=== PATIENT | female | born 1955 | race Caucasian/White ===

== ENCOUNTER → 2024-09-04 | Outpatient (CLI) | payer OTHER | LOC: LAB SHORT 17:01 → LAB 17:01 | DX: N39.0 Urinary tract infection, site not specified (principal) | CPT/HCPCS: 87077; 87086; 87186 ==

== ENCOUNTER 2025-02-02 06:16 | Day surgery (SDC) | payer OTHER ==
[2025-02-02] VITALS (12 sets, daily range): BP systolic 111–142; BP diastolic 64–90
[~2025-02-02] VITALS: Ht 137.2 cm; Wt 67.0 kg
[~2025-02-02 06:16] MED LIST: ALBU90OI INH; ALPR.5 PO; CYCL10 PO; Deltasone 10 mg10 MG; Estrace Vagin42.5 GM VAG; Flonase 0.05% N16 GM; GABA300 PO; HYDPAM25 PO; LEVSOD25 PO; MONT10T PO; Norco 5-325 Ta1 EACH PO; PRED FORTE5 ML; PREMARIN VAG; STIOLTO RESPIMAT4 G1 INH; TRELEGY ELLIPT1 EACH INH; Triamcinolone A15 G4 TOP
[2025-02-02] MEDS ORDERED: Lactated Ringer's 1,000 ML IV SCH (06:25)
[2025-02-02] MEDS ORDERED: CeFAZolin Sodium 2,000 MG in NS 100 ML IV SCH (06:25)
[2025-02-02] MEDS ORDERED: VITAMIN B12500 MCG PO (06:43)
[2025-02-02] MEDS ORDERED: Bupivacaine 0.5% HCl 5 MG/ML 30MLVIAL ONE (07:02)
[2025-02-02] MEDS ORDERED: CeFAZolin Sodium 2,000 MG VIAL ONE (07:04)
[2025-02-02] MEDS ORDERED: propofoL 20 ML IV ONE (07:04)
[2025-02-02] MEDS ORDERED: FentaNYL Citrate 50 MCG/ML 2 ML Injection ONE ×3 (07:19→09:35)
[2025-02-02] MEDS ORDERED: Rocuronium Bromide 10 MG/ML 5ML Injection IV ONE (07:21)
[2025-02-02] MEDS ORDERED: Midazolam HCl 1MG / ML 2ML Vial ONE (07:22)
--- NOTE | 2025-02-02 07:45 | NUR ---
Ambulatory in Day Surgery WITH STEADY GAIT. History, Chart, Medications and Allergies reviewed before start of procedure. Pre-Op teaching done. Pt verbalizes understanding. Patient States Post-Procedure ride home has been arranged WITH FRIEND CAT. TOP AND BOTTOM DENTURES AND GLASSES REMOVED AND PLACED IN PACU WITH PT LABEL ON THEM. PHONE AND BLADDER STIMULATOR CONTROLLER PLACED IN BLACK BAG UNDER PT'S GURN. BLADDER STIMULATOR IN R HIP TURNED OFF PRIOR TO GOING TO OR. CAT PHONED PER PT REQUEST AND INFORMED OF PRESCRIPTION BEING SENT ELECTRONICALLY TO HER PHARMACY IN [place].
[2025-02-02] MEDS ORDERED: Ondansetron HCl 2 MG / ML 2ML Vial ONE (08:18)
[2025-02-02] MEDS ORDERED: FentaNYL Citrate 50 MCG/ML 2 ML Injection IV PRN ×2 (08:35)
[2025-02-02] MEDS ORDERED: Morphine Sulfate 4 MG/1 ML Injection IV PRN (08:35)
[2025-02-02] MEDS ORDERED: Ondansetron HCl 2 MG / ML 2ML Vial IV PRN (08:35)
[2025-02-02] MEDS ORDERED: HydrALAZINE HCl 20 MG / ML 1ML Vial IV PRN (08:35)
[2025-02-02] MEDS ORDERED: HYDROmorphone HCl/Pf 1MG SYR IV PRN (08:35)
[2025-02-02] MEDS ORDERED: Metoclopramide HCl 5MG / ML 2ML Vial IV PRN (08:35)
[2025-02-02] MEDS ORDERED: Sugammadex Sodium 200 MG/2ML SDV (100 MG/ML) ONE (08:58)
[2025-02-02] MEDS ORDERED: HYDROcodone 5-APAP 325 TAB PO PRN (09:15)
--- NOTE | 2025-02-02 11:35 | NUR ---
Patient up to Ambulate independently. Gait steady. Discharge instructions reviewed with patient. Patient verbalizes understanding. Copy given to patient to take home. Patient States Post-Procedure ride home has been arranged. Discharged via wheelchair to private car for ride home. PT PAINFUL BUT REPORTS READY TO GO HOME. ICE IN PLACE. PT VOIDED JUST PRIOR TO LEAVING. PT FRIEND REPORTS PICKING UP PAIN MED FOR PT ALREADY. INCISIONS REMAINED C/D/I. PT GIVEN 2 ICE PACKS PER HER REQ.
== END 2025-02-02 11:35 | disposition home or self-care (01) ==
LOC: ORSCMMR 06:16 → SURS 06:19 → ORSCMMR 07:30 → ORD 07:30 → ORSCMMR 10:00 → SURS 10:00 → ORSCMMR 11:35
PROVIDERS: Surgery
PROC: 0YU64JZ Supplement Left Inguinal Region with Synthetic Substitute, Percutaneous Endoscopic Approach (ICD-10-PCS; principal; 2025-02-02 07:30)
PROC: 8E0W4CZ Robotic Assisted Procedure of Trunk Region, Percutaneous Endoscopic Approach (ICD-10-PCS; principal; 2025-02-02 07:30)
DX: K40.90 Unilateral inguinal hernia, without obstruction or gangrene, not specified as recurrent (principal); J44.89 Other specified chronic obstructive pulmonary disease; E03.9 Hypothyroidism, unspecified; F41.9 Anxiety disorder, unspecified; Z79.899 Other long term (current) drug therapy; Z87.891 Personal history of nicotine dependence
CPT/HCPCS: A9270; C1781; J0690; J2250; J2405; J2704; J3010; J7120